=== PATIENT | female | born 1955 | race Caucasian/White ===

== ENCOUNTER 2017-02-25 15:26 | Emergency (ER) | payer OTHER ==
[2017-02-25 15:26] VITALS: BMI 26.2
[2017-02-25 15:41] VITALS: RESP 18; O2SAT 98
[2017-02-25] MEDS ORDERED: Sodium Chloride 0.9% 1,000 ML IV STA (16:05)
--- NOTE | 2017-02-25 16:37 | ED PDOC ---
HPI: Abdomen Chief Complaint (Provider): Abdominal pain/Diarrhea/Vomiting Additional History Per: Patient Abnormal Vaginal Bleeding: No <Adam Edwards - Last Filed: 02/25/17 19:15> <Zara Salcido - Last Filed: 02/26/17 15:09> Time Seen by Provider: 02/25/17 15:43 Chief Complaint (Nursing): Abdominal Pain Additional Complaint(s): This is 61 y/o female with PSH of , and hysterectomy comes comes to the ED c/o 2 days history of lower abdominal pain, diarrhea, and vomiting. Pain is nonradiating, 7/10 severity which comes and goes, unable to describe pain. Patient admits watery non-bloody diarrhea 5 to 7 episodes per day with NBNB vomiting 4 episodes yesterday associated with food intolerance, nausea, subjective fever, chills, body aches, headache and low energy. Patient denies any dizziness, chest pain, urinary symptoms, or SOB. Denies any recent traveling or recent use of antibiotics. Denies any intake of unusual food or family members having same symptoms. (Adam Edwards) Supervising Attending Note <Adam Edwards - Last Filed: 02/25/17 19:15> - Supervising Attending Note The Documented history was done by the: Physician Train System Operator, Attending Physician The documented physical exam was done by the: Physician Train System Operator, Attending Physician - Attestation: I have personally seen and examined this patient.: Yes I have fully participated in the care of the patient.: Yes I have reviewed all pertinent clinical information: Yes <Zara Salcido - Last Filed: 02/26/17 15:09> - Notes: Notes:: diarrhea vomiting and fever. labs wnl. feeling better s/p ER treatment. stable for dc. (Zara Salcido) Past Medical History - Medical History PMH: Denies: Asthma, CAD, COPD, Crohn's Disease, Diabetes, HTN, Hyperthyroidism, Kidney Stones - Surgical History Surgical History: Denies: Appendectomy, Cholecystectomy - Family History Family History: States: [place], Diabetes, Hypertension - Social History Current smoker - smoking cessation education provided: No Ex-Smoker (has not smoked in the last 12 months): No Alcohol: None Drugs: Denies <Edwards,Jahin - Last Filed: 02/25/17 19:15> <OmariZara J - Last Filed: 02/26/17 15:09> Vital Signs: Last Vital Signs Temp 100 F H 02/25/17 19:51 Pulse Resp 18 02/25/17 19:51 BP 110/70 02/25/17 19:51 Pulse Ox 98 02/25/17 19:51 - Home Medications Home Medications: Ambulatory Orders Medication Instructions Recorded Latanoprost 0.005% Opht [Xalatan 1 drop OU HS 09/25/13 Opht] Naproxen [Naprosyn Tab] 500 mg PO BID PRN #30 tab 10/29/13 Acetaminophen [Tylenol Extra 1,000 mg PO Q6 PRN #100 tablet 02/25/17 Strength] Dicyclomine [Bentyl] 20 mg PO BID PRN #30 tab 02/25/17 Ondansetron ODT [Zofran ODT] 1 odt PO Q6 PRN #20 odt 02/25/17 - Allergies Allergies/Adverse Reactions: Allergies Allergy/AdvReac Type Severity Reaction Status Date / Time No Known Allergies Allergy Unverified 09/25/13 16:36 Review of Systems Constitutional: Positive for: Fever, Chills. Negative for: Sweats, Weight loss Eyes: Negative for: Pain, Vision Change ENT: Negative for: Ear Pain, Nose Pain Cardiovascular: Negative for: Chest Pain, Palpitations Respiratory: Negative for: Cough, Shortness of Breath Gastrointestinal: Positive for: Nausea, Vomiting, Abdominal Pain, Diarrhea Genitourinary Female: Negative for: Dysuria Musculoskeletal: Negative for: Neck Pain Skin: Negative for: Rash Neurological: Negative for: Weakness, Numbness <Adam Edwards - Last Filed: 02/25/17 19:15> Physical Exam - Physical Exam Appears: Positive for: No Acute Distress Head Exam: Positive for: ATRAUMATIC, NORMAL INSPECTION, NORMOCEPHALIC Skin: Positive for: Normal Color Eye Exam: Positive for: Normal appearance, EOMI, PERRL ENT: Positive for: Normal ENT Inspection Neck: Positive for: Normal Cardiovascular/Chest: Positive for: Regular Rate, Rhythm Respiratory: Positive for: Normal Breath Sounds Gastrointestinal/Abdominal: Positive for: Bowel Sounds, Soft, Tenderness (B/l mild LQ pain on deep palpation ). Negative for: Distended, Rebound Back: Positive for: Normal Inspection Neurologic/Psych: Positive for: Alert, Oriented <Aadm Edwards - Last Filed: 02/25/17 19:15> - Laboratory Results Result Diagrams: 02/25/17 16:45 02/25/17 16:45 - ECG O2 Sat by Pulse Oximetry: 98 - Progress Re-evaluation Time: 19:00 (Pain is better.) Condition: Improved <Adam Edwards - Last Filed: 02/25/17 19:15> - Laboratory Results Result Diagrams: 02/25/17 16:45 02/25/17 16:45 <Zara Salcido - Last Filed: 02/26/17 15:09> - Progress ED Course And Treament: 61 y/o female with b/l Lower abdominal pain comes to the ED for evaluation of abdominal pain, diarrhea and vomiting. - UA, Ucx, CBC, CMP - Bcx - IVF - Bentyl 20mg PO - Zofran 4 mg - Tylenol - Toradol - Re-evaluation Case discussed with Dr. Salcido CBC, CMP and UA reviewed and wnl Patient is feeling much better. denies any pain. repeat Tm 100.0. (Adam Edwards) Medical Decision Making <Adam Edwards - Last Filed: 02/25/17 19:15> <Zara Salcido - Last Filed: 02/26/17 15:09> Medical Decision Making: Abdominal pain (Adam Edwards) Disposition - Patient ED Disposition Is Patient to be Admitted: No - Disposition Disposition: Routine/Home Disposition Time: 19:14 <Adam Edwards - Last Filed: 02/25/17 19:15> <Zara Salcido - Last Filed: 02/26/17 15:09> - Clinical Impression Clinical Impression: Vomiting and diarrhea, Febrile illness, Gastroenteritis - Disposition Referrals: Kary Sam MD [Family Provider] - 02/28/17 Condition: STABLE Prescriptions: Acetaminophen [Tylenol Extra Strength] 1,000 mg PO Q6 PRN #100 tablet PRN Reason: FEVER OR PAIN Dicyclomine [Bentyl] 20 mg PO BID PRN #30 tab PRN Reason: abdominal pain Ondansetron ODT [Zofran ODT] 1 odt PO Q6 PRN #20 odt PRN Reason: Nausea/Vomiting Instructions: Gastroenteritis (ED) Forms: [facility] ([place]) Print Language: YAKUT
[2017-02-25 16:58] LABS: BASO % 0.4 % (0.0-2.0); EOS % 0.5 % (0.0-4.0); HEMOGLOBIN 12.9 g/dL (12.0-16.0); LYMPH # 0.6 K/uL (1.0-4.3); LYMPH % 18.2 % (20.0-40.0); MEAN CORPUSCULAR HEMOGLOBIN 28.4 pg (27.0-31.0); MEAN CORPUSCULAR HGB CONC 33.4 g/dL (33.0-37.0); MEAN PLATELET VOLUME 8.1 fl (7.2-11.7); MONO # 0.3 K/uL (0.0-0.8); NEUT # 2.5 K/uL (1.8-7.0); NEUT % 72.9 % (50.0-75.0); NRBC % 0.1 % (0.0-0.0); RBC 4.56 Mil/uL (3.80-5.20); RED CELL DISTRIBUTION WIDTH 13.8 % (11.5-14.5); WHITE BLOOD COUNT 3.4 K/uL (4.8-10.8)
[2017-02-25 17:01] LABS: SQUAMOUS EPITHIAL < 1 /hpf (0-5); URINE BACTERIA RARE (<OCC); URINE BILIRUBIN NEGATIVE (NEGATIVE); URINE BLOOD NEGATIVE (NEGATIVE); URINE CLARITY CLEAR (Clear); URINE COLOR STRAW (YELLOW); URINE GLUCOSE (UA) NEG (Normal); URINE LEUKOCYTE ESTERASE TRACE Leu/uL (Negative); URINE NITRATE NEGATIVE (NEGATIVE); URINE PROTEIN NEGATIVE (NEGATIVE); URINE UROBILINOGEN 0.2-1.0 mg/dL (0.2-1.0)
[2017-02-25 17:08] LABS: ALB/GLOB RATIO 1.2 (1.0-2.1); ALT/SGPT 29 U/L (9-52); AST/SGOT 31 U/L (14-36); BLOOD UREA NITROGEN 12 mg/dl (7-17); CALCIUM 9.5 mg/dL (8.4-10.2); GFR AFRICAN-AMERICAN > 60; GFR NON-AFRICAN AMERICAN > 60
[2017-02-25 19:52] VITALS: BP 110/70; TEMP 100
== END 2017-02-25 19:29 | disposition home or self-care (01) ==
LOC: H.ER 15:26
DX: K52.9 Noninfective gastroenteritis and colitis, unspecified (principal); Z87.891 Personal history of nicotine dependence
CPT/HCPCS: 80053; 81003; 83605; 85025; 87040; 87086; 96374; 99284; J2405; J7040